=== PATIENT | male | born 2000 | race Caucasian/White ===

== ENCOUNTER 2022-03-08 21:32 | Inpatient (IN) | payer SELFPAY ==
[2022-03-08 21:47] VITALS: BP 166/123; PULSE 144; RESP 24; TEMP 36.3; O2SAT 99
--- NOTE | 2022-03-08 21:56 | ED_ITS ---
HPI - Abdominal Pain General Chief Complaint: Weakness Stated Complaint: Vomiting blood, weakness, chills Time Seen by Provider: 03/08/22 21:49 History of Present Illness HPI narrative: Patient is a 22-year-old gentleman who states he has no past medical history who presents with acute abdominal pain, coffee-ground emesis and fatigue over the last 24 hours. He has had some diarrhea as well. He states his mouth is extremely dry. He has had no fevers no chills no night sweats. He has had no skin breakdown no cough no shortness of breath. Related Data Home Medications Medication Instructions Recorded Confirmed aspirin 325 mg capsule 325 mg PO Q4-6H PRN 03/08/22 03/08/22 phosphorated carbohydrate oral 30 ml PO Q15M 03/08/22 03/08/22 solution (Emetrol oral solution) Allergies Allergy/AdvReac Type Severity Reaction Status Date / Time No Known Drug Allergies Allergy Verified 03/08/22 21:52 Review of Systems Status of ROS Reports: 10 or more systems reviewed and unremarkable except as noted in History and below [facility] Medical History (Updated 03/08/22 @ 22:56 by Kenan Ny MD) Anxiety Depression Exam Narrative: Exam Narrative: EXAM GENERAL: Patient appears distressed and dehydrated with dry mucous membranes EYES: No scleral icterus.. LYMPH: No supraclavicular or cervical lymphadenopathy. SKIN: Visible skin seen during exam normal or with benign process only. EXT: No dependent lower extremity pedal edema. HEART: Tachycardic no obvious rubs clicks gallops or murmurs. LUNGS: Clear to auscultation bilaterally with no crackles or wheezes. ABD: Mildly distended hypoactive bowel sounds no rebound mass or guarding. PSYCH: Good eye contact, speech is not pressured. Const: Vital Signs, click to edit/add: Vital Signs - 24 hr 03/08/22 21:47 Temperature 97.3 F L Pulse Rate [Right Pulse Oximeter] 144 H Respiratory Rate 24 Blood Pressure [Le ft Upper Arm] 166/123 H Pulse Oximetry 99 Course Course Hospital Course: Patient was immediately started on IV hydration. Blood sugars greater than 550. Lactate was noted to be elevated. Anion gap metabolic acidosis was immediately identified. Patient this time was admitted for further evaluation and treatment of diabetic ketoacidosis. Vital Signs Vital signs: Initial Vital Signs Temperature 97.3 F L 03/08/22 21:47 Temperature Source Temporal Artery Scan 03/08/22 21:47 Pulse Rate 144 H 03/08/22 21:47 Pulse Rhythm 03/08/22 21:47 Respiratory Rate 24 03/08/22 21:47 Blood Pressure 166/123 H 03/08/22 21:47 Blood Pressure Mean 137 03/08/22 21:47 Blood Pressure Position Supine 03/08/22 21:47 Pulse Oximetry 99 03/08/22 21:47 Oxygen Delivery Method 03/08/22 21:47 Vital Signs Temperature 97.3 F L 03/08/22 21:47 Pulse Rate 144 H 03/08/22 21:47 Respiratory Rate 24 03/08/22 21:47 Blood Pressure 166/123 H 03/08/22 21:47 Pulse Oximetry 99 03/08/22 21:47 Temperature 97.3 F L 03/08/22 21:47 Pulse Rate 144 H 03/08/22 21:47 Respiratory Rate 24 03/08/22 21:47 Blood Pressure 166/123 H 03/08/22 21:47 Pulse Oximetry 99 03/08/22 21:47 MDM - Abdominal Pain Lab Data Labs: Lab Results 03/08/22 03/08/22 03/08/22 Range/Units 22:04 22:04 22:04 ABG pH 7.04 L* (7.35-7.45) ABG pCO2 20 L (35-45) mmHG ABG pO2 47.3 L* (80-105) mmHG ABG HCO3 6 L (21-28) mmol/L ABG Total CO2 5 L (21-30) mmol/l ABG O2 Saturation 73 L (92-100) % ABG Base Excess -23.3 L (-3.0-3.0) mmol/L Sodium 138 (135-149) mmol/L Potassium 5.2 H (3.6-5.1) mmol/L Chloride 102 (96-114) mmol/L Carbon Dioxide < 5 L* (20-32) mmol/L BUN 13 (5-24) mg/dL Creatinine 1.4 (0.5-1.5) mg/dL Glucose 549 H* (60-115) mg/dL Lactate 5.2 H* (0.5-1.9) mmol/L Calcium 10.4 (8.4-10.6) mg/dL Total Bilirubin 1.1 (0.1-1.5) mg/dL AST 64 H (12-35) U/L ALT 184 H (4-50) U/L Alkaline Phosphatase 226 H (40-150) U/L Total Protein 9.1 H (6.0-8.3) g/dL Albumin 5.5 H (3.3-5.0) g/dL Amylase Cancelled Discharge Plan Discharge Clinical Impression: DKA (diabetic ketoacidosis) Patient Disposition: Admitted As Inpatient Condition: Unchanged Procedures ABG Interpretation ABG Interpretation 1: ABG Results: 03/08/22 22:04 ABG pH 7.04 L* ABG pCO2 20 L ABG pO2 47.3 L* ABG HCO3 6 L ABG Total CO2 5 L ABG O2 Saturation 73 L ABG Base Excess -23.3 L Additional Comments: Significant metabolic acidosis
[2022-03-08 22:10] LABS: Slide Review Reflex No
[2022-03-08 22:12] LABS: Lactate* 5.2 mmol/L (0.5-1.9)
[2022-03-08] MEDS: 0.9 % SODIUM CHLORIDE 1000 ml 1,000 ML IV (22:20)
[2022-03-08] MEDS: ONDANSETRON 2 MG/ML inj 4 MG IVP ×2 (22:21→23:41)
[2022-03-08 22:26] LABS: Albumin* 5.5 g/dL (3.3-5.0); Chloride* 102 mmol/L (96-114); Potassium* 5.2 mmol/L (3.6-5.1); Sodium* 138 mmol/L (135-149)
[2022-03-08 22:28] LABS: Creatinine* 1.4 mg/dL (0.5-1.5); Estimated Glomerular Filt Rate 72.43
[2022-03-08 22:29] LABS: Alanine Aminotransferase* 184 U/L (4-50); Alkaline Phosphatase* 226 U/L (40-150); Aspartate Amino Transferase* 64 U/L (12-35); Bilirubin Total* 1.1 mg/dL (0.1-1.5); Blood Urea Nitrogen* 13 mg/dL (5-24); Total Protein* 9.1 g/dL (6.0-8.3)
[2022-03-08 22:30] VITALS: BP 144/102; PULSE 148; RESP 32; O2SAT 98
[2022-03-08 22:30] LABS: Calcium* 10.4 mg/dL (8.4-10.6)
[2022-03-08] MEDS: MORPHINE 2 MG/ML inj IVP ×2 (22:30→23:41)
[2022-03-08 22:35] LABS: ABG PCO2 20 mmHG (35-45); HCO3 ABG 6 mmol/L (21-28)
[2022-03-08 22:36] LABS: Base Excess ABG -23.3 mmol/L (-3.0-3.0); Oxygen Saturation ABG 73 % (92-100); TCO2 ABG 5 mmol/l (21-30)
[2022-03-08 22:37] LABS: PO2 ABG 47.3 mmHG (80-105); pH ABG 7.04 (7.35-7.45)
[2022-03-08 22:38] LABS: Glucose* 549 mg/dL (60-115)
--- NOTE | 2022-03-08 22:38 | ED.NURSE ---
Critical Labs received: F76=ptxb than 5 ABG PH= 7.04 ABG PO2= 47.3 Blood Glucose= 549 Handed to at 2528
--- NOTE | 2022-03-08 22:38 | PC.NURSE ---
Alerted Dr. Ny of the critical lactate 5.2
[2022-03-08 22:39] LABS: Carbon Dioxide* < 5 mmol/L (20-32)
[2022-03-08 22:41] LABS: Basophils Percent Auto 0.6 % (0.0-3.0); Eosinophils Percent Auto 0.1 % (0.0-7.0); Hematocrit 58.8 % (37.0-53.0); Hemoglobin* 19.9 gm/dL (13.5-17.5); Immature Granulocytes Abs Auto 0.76 K/uL (0.00-0.30); Lymphocytes Percent Auto 11.5 % (20-44); Mean Corpuscular HGB Conc 34 gm/dL (32-36); Mean Corpuscular Hemoglobin 32 pg (26-34); Mean Corpuscular Volume 95 fL (80-100); Monocytes Percent Auto 6.5 % (0.0-11.0); Neutrophils Percent Auto 75.7 % (42.0-72.0); Platelet Count* 279 K/uL (140-440); RDW Coefficient of Variation % 12.1 % (11.5-15.5); Red Blood Count 6.21 m/uL (4.30-5.90); White Blood Count* 13.53 K/uL (4.50-11.00)
[2022-03-08 23:00] VITALS: BP 135/122; PULSE 144; RESP 30; O2SAT 99
[2022-03-08] MEDS: 0.9 % SODIUM CHLORIDE 1000 ml 1,000 ML 6000 ML IV (23:26)
--- NOTE | 2022-03-08 23:27 | PM.IMHP1 ---
Hospitalist- H&P: HPI History of Present Illness Time Seen by Provider: 23:26 Date Seen: 03/09/22 Chief complaint: Vomiting blood, weakness, chills Narrative: Gee Raymond is a 22 year old male Presents to the hospital with onset of epigastric pain yesterday at noon. patient reports having developed coffee-ground emesis and feels very dehydrated today. He has extreme thirst. He has past history of alcohol abuse necrotizing pancreatitis. No previous history of diabetes. He reports he was drinking alcohol 2 days ago. 1.5 years ago he was hospitalized here is for to [facility] necrotizing pancreatitis and so was found to have a pulmonary embolism. previously treated with Eliquis. Review of Systems Narrative: Review of systems is negative except as noted above. PFSH PFS Medical History Alcohol use disorder Anxiety Chronic alcoholic pancreatitis Depression Necrotizing pancreatitis Pulmonary embolism Family History (Updated 03/08/22 @ 23:44 by Bebeto Ponce MD) Maternal Grandfather Diabetes Social History Smoking Status: Never smoker Do you use any of these nicotine containing products: None Second hand tobacco smoke exposure: No How often do you have a drink containing alcohol: monthly or less How many standard drinks containing alcohol do you have on a typical day: 1 or 2 How often do you have six or more drinks on one occasion: Never AUDIT-C Alcohol total score: 1 Non-prescribed substance use: denies use service: No Meds Home Medications and Allergies Home Medications Medication Instructions Recorded Confirmed Type aspirin 325 mg capsule 325 mg PO Q4-6H PRN 03/08/22 03/08/22 History phosphorated carbohydrate oral 30 ml PO Q15M 03/08/22 03/08/22 History solution (Emetrol oral solution) Allergies Allergy/AdvReac Type Severity Reaction Status Date / Time No Known Drug Allergies Allergy Verified 03/08/22 21:52 Exam Narrative: Exam Narrative: he is alert and oriented to his circumstances. He is able to give his own history. He is tachypneic. Eyes are normal. Oropharynx with dry mucous membranes. Neck is Supple without mass or adenopathy. Respirations are clear to auscultation. CV: S1, S2, regular tachycardia. no murmur or rub.. Abdomen: Soft with mild epigastric tenderness. no peritonitis. No mass. Good peripheral pulses. Extremities are well perfused. No edema. No rash Const: Vital Signs, click to edit/add: Vital Signs - 24 hr 03/08/22 21:47 Temperature 97.3 F L Pulse Rate [Right Pulse Oximeter] 144 H Respiratory Rate 24 Blood Pressure [Le ft Upper Arm] 166/123 H Pulse Oximetry 99 Documenting provider has reviewed patient's vital signs: yes Hospitalist - H&P: Result Labs Labs: Short CBC 03/08/22 Range/Units 22:04 WBC 13.53 H (4.50-11.00) K/uL Hgb 19.9 H (13.5-17.5) gm/dL Hct 58.8 H (37.0-53.0) % Plt Count 279 (140-440) K/uL BMP 03/08/22 22:04 Sodium 138 Potassium 5.2 H Chloride 102 Carbon Dioxide < 5 L* BUN 13 Creatinine 1.4 Glucose 549 H* Calcium 10.4 Liver Function 03/08/22 Range/Units 22:04 Total Bilirubin 1.1 (0.1-1.5) mg/dL AST 64 H (12-35) U/L ALT 184 H (4-50) U/L Alkaline Phosphatase 226 H (40-150) U/L Albumin 5.5 H (3.3-5.0) g/dL Assessment and Plan Assessment and plan (1) Alcohol use disorder: Status: Acute (2) Diabetic ketoacidosis associated with type 1 diabetes mellitus: Status: Acute Plan patient presenting with diabetic ketoacidosis with a history of necrotizing pancreatitis. Probably a type 1 diabetes mellitus. admit to CCU, IV fluids, insulin drip, close monitoring of electrolytes and fluid status, evaluate for GI bleeding, infection, pancreatitis, alcohol withdrawal.
[2022-03-09] VITALS (22 sets, daily range): BP systolic 117–143; BP diastolic 66–118; PULSE 94–135; RESP 16–26; TEMP 36.3–37.2; O2SAT 92–100; BMI 33.6
[2022-03-09 00:04] LABS: Amylase* 101 U/L (18-89); Troponin I* < 0.01 ng/mL (0.01-0.04)
[2022-03-09 00:12] LABS: SARS PCR* Negative SARS-CoV-2 (Negative)
--- NOTE | 2022-03-09 00:27 | ED.NURSE ---
Insulin gtt started per order, 100units/100ml, started at 6units/hr per verbal order from Dr. Ponce. Blood sugar 374. Verified dose/med/concentration with PREM Wells.
--- NOTE | 2022-03-09 00:31 | ED.NURSE ---
Insulin dose and rate verified with PREM Uriarte. System not prompting to co-sign.
[2022-03-09 01:05] LABS: Lactate* 3.2 mmol/L (0.5-1.9); pH VBG 7.019 (7.32-7.43)
[2022-03-09 01:06] LABS: HCO3 VBG 5 mmol/L (21-28); PCO2 VBG 18 mmHG (40-50); PO2 VBG 52.9 mmHG (25-47); Sodium* 143 mmol/L (135-149)
[2022-03-09 01:07] LABS: Blood Urea Nitrogen* 13 mg/dL (5-24); Calcium* 8.9 mg/dL (8.4-10.6); Carbon Dioxide* < 5 mmol/L (20-32); Chloride* 115 mmol/L (96-114); Estimated Glomerular Filt Rate 108.46; Glucose* 337 mg/dL (60-115); Lipase* 554 U/L (23-300); Magnesium* 2.6 mg/dL (1.5-2.6); Potassium* 5.1 mmol/L (3.6-5.1)
[2022-03-09 01:07] LABS: Appearance Urine Clear (Clear); Bilirubin Urine 1+ (Negative); Blood Urine 2+ (Negative); Color Urine Yellow (Yellow); Glucose Urine 2+ (Negative); Ketones Urine 4+ (Negative); Leukocyte Esterase Urine Negative (Negative); Nitrite Urine Negative (Negative); Protein Urine 2+ (Negative); Specific Gravity Urine >= 1.030 (1.000-1.030); Urobilinogen Urine 0.2 (0.2-1.0); pH Urine 5.5 (5.0-8.5)
[2022-03-09 01:09] LABS: D Dimer Quantitative* 0.84 ug/ml (0.00-0.50)
--- NOTE | 2022-03-09 01:10 | XR_ITS ---
Final Report Patient: APGE ANGUIANO Facility:?[facility] Patient ID:?[id number] Site Patient ID:?[id number]. Site :?2000 Study:?XRay Chest 2v-03/09/2022 1:43:52 AM Ordering Physician:Melvi Taet Final Report: INDICATION: Weakness TECHNIQUE: Chest radiograph 2 views COMPARISON: None FINDINGS: Mediastinum: The mediastinum is normal in appearance. The heart silhouette is normal in size and morphology. Lung: Both lungs are unremarkable in appearance with small lung volumes. No sign of pleural effusion seen. No pneumothorax is identified. Bone and Soft tissue: Unremarkable for age. IMPRESSION: 1. No acute cardiopulmonary disease is seen. Dictated by: Garrett Weiss MD @ 03/09/2022 01:46:45 (Electronic Signature)
--- NOTE | 2022-03-09 01:10 | CT_ITS ---
Final Report Patient: PAGE ANGUIANO Facility:?[facility] Patient ID:?[id number] Site Patient ID:?[id number]. Site :?2000 Study:?CT Abdomen/Pelvis-03/09/2022 1:42:05 AM Ordering Physician:Melvi Tate Final Report: INDICATION: Abdominal pain TECHNIQUE: CT Abdomen and pelvis without i.v. contrast. Coronal and sagittal reformats were obtained. COMPARISON: 12/22/2020 FINDINGS: Lower chest: Unremarkable. Liver: New severe fatty infiltration of liver is noted. Spleen: Unremarkable. Pancreas: Mild stranding of the retroperitoneal fat is seen adjacent to the pancreatic body. Gallbladder: The gallbladder lumen is hyperdense in appearance which may be due to sludge, small gallstones, or vicarious excretion of any recently administered contrast. Kidney: Unremarkable. No kidney or ureteral stones or obstruction seen. Adrenal: Unremarkable. Bowel: Unremarkable. The appendix is normal in appearance and size. Vascular: Unremarkable. Lymph: Unremarkable. Peritoneum: Unremarkable. No pneumoperitoneum is seen. No significant ascites is noted. Pelvis: Unremarkable. Soft tissue: Unremarkable. Bone: Unremarkable for age. IMPRESSIONS: 1. New severe fatty infiltration of liver is noted. 2. Mild stranding of the retroperitoneal fat is seen adjacent to the pancreatic body. Correlation with serum amylase and lipase levels are recommended to exclude acute pancreatitis. Dictated by Garrett Weiss MD @ 03/09/2022 1:54:39 AM Please note that all CT scans at this facility use dose modulation, iterative reconstruction, and/or weight-based dosing when appropriate to reduce radiation dose to as low as reasonably achievable. Dictated by: Garrett Weiss MD @ 03/09/2022 01:54:59 (Electronic Signature)
[2022-03-09 01:14] LABS: Hematocrit 53.5 % (37.0-53.0); Hemoglobin* 17.8 gm/dL (13.5-17.5); Mean Corpuscular HGB Conc 33 gm/dL (32-36); Mean Corpuscular Hemoglobin 32 pg (26-34); Mean Corpuscular Volume 96 fL (80-100); Platelet Count* 195 K/uL (140-440); Slide Review Reflex No; White Blood Count* 12.87 K/uL (4.50-11.00)
[2022-03-09 01:15] LABS: Lymphocytes Percent Auto 7.9 % (20-44); Neutrophils Percent Auto 78.8 % (42.0-72.0)
[2022-03-09 01:16] LABS: Basophils Percent Auto 0.4 % (0.0-3.0); Eosinophils Percent Auto 0.1 % (0.0-7.0); Immature Granulocytes Pct Auto 4.3 %; Monocytes Percent Auto 8.5 % (0.0-11.0)
--- NOTE | 2022-03-09 01:22 | ED.NURSE ---
[facility]. Patient does not meet criteria for their facility. Patient is not acute enough.
[2022-03-09 01:33] LABS: RBC Urine 0-2 (0-2); WBC Urine 0-2 (0-5)
--- NOTE | 2022-03-09 01:40 | ED.NURSE ---
Pt transported to med/surg via wheelchair, update given to PREM Lizama, at the bedside.
[2022-03-09] MEDS: MORPHINE 2 MG/ML inj IVP ×3 (01:53→17:25)
[2022-03-09] MEDS: ENOXAPARIN 30 MG/0.3ML INJ SUBCUT ×2 (02:18→14:33)
[2022-03-09] MEDS: THIAMINE 100 MG TABLET PO ×2 (02:19→21:10)
[2022-03-09] MEDS: 0.9 % SODIUM CHLORIDE 1000 ml 1,000 ML 500 ML IV (02:19)
[2022-03-09 02:36] LABS: Lactate* 2.3 mmol/L (0.5-1.9)
[2022-03-09] MEDS: PANTOPRAZOLE SODIUM 40 MG INJ IVP (03:07)
[2022-03-09 03:10] LABS: Amphetamine Screen Urine Negative (Negative); Barbiturate Screen Urine Negative (Negative); Benzodiazepines Screen Urine Negative (Negative); Cannabinoid Screen Urine Negative (Negative); Cocaine Screen Urine Negative (Negative); Methadone Screen Urine Negative (Negative); Methamphetamines Screen Urine Negative (Negative); Opiate Screen Urine POSITIVE (Negative); Phencyclidine Screen Urine Negative (Negative); Tricyclic Antidepressant Urine Negative (Negative)
[2022-03-09 03:12] LABS: Oxycodone Screen Urine Negative (Negative)
[2022-03-09] MEDS: 5 % DEXTROSE IN LAC RINGER'S 1,000 ML 250 ML IV ×2 (03:18→07:20)
[2022-03-09 04:41] LABS: Glucose, Point-of-Care* 180 mg/dl (60-115)
[2022-03-09 05:20] LABS: Lactate* 1.6 mmol/L (0.5-1.9); Slide Review Reflex No
[2022-03-09 05:23] LABS: Basophils Percent Auto 0.4 % (0.0-3.0); Hematocrit 48.9 % (37.0-53.0); Hemoglobin* 16.5 gm/dL (13.5-17.5); Immature Granulocytes Abs Auto 0.26 K/uL (0.00-0.30); Lymphocytes Percent Auto 21.2 % (20-44); Mean Corpuscular HGB Conc 34 gm/dL (32-36); Mean Corpuscular Hemoglobin 32 pg (26-34); Mean Corpuscular Volume 96 fL (80-100); Monocytes Percent Auto 8.3 % (0.0-11.0); Neutrophils Percent Auto 67.9 % (42.0-72.0); Platelet Count* 162 K/uL (140-440); RDW Coefficient of Variation % 12.3 % (11.5-15.5); Red Blood Count 5.12 m/uL (4.30-5.90); White Blood Count* 11.87 K/uL (4.50-11.00)
[2022-03-09 05:37] LABS: Chloride* 115 mmol/L (96-114); Sodium* 139 mmol/L (135-149)
[2022-03-09 05:38] LABS: Potassium* 3.7 mmol/L (3.6-5.1)
[2022-03-09 05:40] LABS: Alanine Aminotransferase* 113 U/L (4-50); Alkaline Phosphatase* 148 U/L (40-150); Aspartate Amino Transferase* 40 U/L (12-35); Bilirubin Total* 0.9 mg/dL (0.1-1.5); Blood Urea Nitrogen* 10 mg/dL (5-24); Creatinine* 0.8 mg/dL (0.5-1.5); Est. Creatinine Clearance* 110.91; Estimated Glomerular Filt Rate 127.53; Glucose* 170 mg/dL (60-115); Total Protein* 6.6 g/dL (6.0-8.3)
[2022-03-09 05:41] LABS: Calcium* 8.2 mg/dL (8.4-10.6)
[2022-03-09 05:42] LABS: Carbon Dioxide* 5 mmol/L (20-32)
[2022-03-09 05:43] LABS: Glucose, Point-of-Care* 190 mg/dl (60-115)
--- NOTE | 2022-03-09 07:30 | PC.NURSE ---
Shift note: The pt has been pleasant and cooperative. 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 He was able to communicate with the health technical writer without any issues. The pt has been on Insulin drip per protocol. He has katt denying signs and sputum of hypo and hyper glycemia. Pain has been managed with IV morphine. CIWA has been less than 7. The pt denied any distress throughout the shift.
[2022-03-09 08:20] LABS: Glucose, Point-of-Care* 132 mg/dl (60-115)
[2022-03-09 08:29] LABS: Glucose, Point-of-Care* 132 mg/dl (60-115)
[2022-03-09 08:31] LABS: HCO3 VBG 11 mmol/L (21-28); PCO2 VBG 26 mmHG (40-50); pH VBG 7.254 (7.32-7.43)
[2022-03-09] MEDS: FOLIC ACID 1 MG TABLET PO (09:25)
[2022-03-09] MEDS: MULTIVITAMIN/MINERALS 1 TABLET 1 TAB PO (09:25)
[2022-03-09] MEDS: 5 % DEX/0.45 SOD CHL+KCL20 mEq 1,000 ML 250 ML IV (09:30)
[2022-03-09 09:40] LABS: Glucose, Point-of-Care* 151 mg/dl (60-115)
[2022-03-09 10:58] LABS: Glucose, Point-of-Care* 158 mg/dl (60-115)
--- NOTE | 2022-03-09 11:04 | PC.SOCIAL ---
Met with pt. to give chemical dependency resources. Pt. has been given these resources 2x before. Gave pt. inpatient and outpatient chemical dependency treatment facilities, AA, and information for a Rule 25 assessment since pt. has no insurance. Pt. had no questions.
[2022-03-09 11:08] LABS: Glucose, Point-of-Care* 133 mg/dl (60-115)
[2022-03-09 11:43] LABS: Glucose, Point-of-Care* 174 mg/dl (60-115)
[2022-03-09 12:43] LABS: Glucose, Point-of-Care* 192 mg/dl (60-115)
[2022-03-09 13:38] LABS: Chloride* 107 mmol/L (96-114); Sodium* 132 mmol/L (135-149)
[2022-03-09 13:40] LABS: Creatinine* 0.5 mg/dL (0.5-1.5); Est. Creatinine Clearance* 177.45; Estimated Glomerular Filt Rate 146.98
[2022-03-09 13:41] LABS: Blood Urea Nitrogen* 6 mg/dL (5-24); Carbon Dioxide* 14 mmol/L (20-32); Glucose* 174 mg/dL (60-115)
[2022-03-09] MEDS: 5 % DEX/0.45 SOD CHL+KCL20 mEq 1,000 ML 125 ML IV ×2 (14:21→21:25)
[2022-03-09 14:49] LABS: Glucose, Point-of-Care* 146 mg/dl (60-115)
--- NOTE | 2022-03-09 14:55 | PM.IMPN1 ---
Progress Note: A&P Assessment and plan (1) DKA (diabetic ketoacidosis): Status: Acute Assessment and Plan: I suspect this is related to pancreatic insufficiency related to chronic pancreatitis due to chronic alcoholism. His acidosis is resolving. His blood sugars are controlled. I will DC the insulin drip. I will cover him with sliding scale insulin and insulin glargine with frequent bedside point of care glucose measurements. I will add an A1c to his labs to see where his blood sugars been over the last few weeks. (2) Alcohol use disorder: Status: Acute Assessment and Plan: CIWA scales ordered and there seems to be no obvious signs of acute intoxication or withdrawal noted. (3) Pancreatitis: Status: Acute Assessment and Plan: Lipase was elevated at admission. He has a history of chronic pancreatitis. (4) Fatty liver due to alcoholism: Status: Acute Plan CT is describing this as new and severe. Likely again related to alcohol use disorder. Subjective Interval history: Daily Progress Note - Hospital Medicine Day #: 2 CC: Fatigue, nausea OVERNIGHT UPDATES FROM STAFF & MED, LAB, IMAGING UPDATES Afebrile Blood pressure 128/86, 139/90 Pulse in the low 100 Respiratory rate 16 Pulse ox 92% Weight 83 kilos Leukocytosis is down trending Blood gas this morning at 8:30 a.m. showed a nice improvement in his metabolic acidosis. PH was 7.3 Bicarb was 5 at 0 5 this morning and is up to 14 this afternoon Potassium is low normal this morning and had dropped to 3.0 this afternoon. Blood sugars under 200 AST and ALT mildly elevated at 40, 113 respectively. Normal bili. Lipase at midnight was 554 CT abdomen pelvis from admission is reviewed IMPRESSIONS: 1. New severe fatty infiltration of liver is noted. 2. Mild stranding of the retroperitoneal fat is seen adjacent to the pancreatic body. Correlation with serum amylase and lipase levels are recommended to exclude acute pancreatitis. Review of Systems: See subjective Cardiac: No new chest pain/pressure/palpitations. Respiratory: no new dyspnea. GI: No abdominal bloating Objective: Alert. Interactive. But mildly groggy. Vitals: see above Lungs: Clear. Cardiac: S1S2. Abdomen: Mildly obese Disposition/Potential discharge - Likely to return to previous living situation. Total time is 35 minutes with greater than 50% spent in counseling and coordination of care. Exam Const: Vital Signs, click to edit/add: Vital Signs - 24 hr 03/08/22 21:47 03/08/22 22:30 03/08/22 23:00 Temperature 97.3 F L Pulse Rate [Left P ulse Oximeter] Pulse Rate [Right Brachial] Pulse Rate [Right Pulse Oximeter] 144 H 148 H 144 H Respiratory Rate 24 32 H 30 H Blood Pressure [Le ft Arm] Blood Pressure [Le ft Upper Arm] 166/123 H 144/102 H 135/122 H Pulse Oximetry 99 98 99 03/09/22 00:40 03/09/22 01:00 03/09/22 02:00 Temperature 97.3 F L Pulse Rate [Left P ulse Oximeter] 135 H Pulse Rate [Right Brachial] 135 H Pulse Rate [Right Pulse Oximeter] 132 H 131 H Respiratory Rate 26 H 24 24 Blood Pressure [Le ft Arm] 137/84 Blood Pressure [Le ft Upper Arm] 140/118 H 143/93 H Pulse Oximetry 99 99 98 03/09/22 02:03 03/09/22 02:54 03/09/22 03:33 Temperature 97.3 F L 97.3 F L 97.4 F L Pulse Rate [Left P ulse Oximeter] 135 H 135 H 115 H Pulse Rate [Right Brachial] 135 H 115 H Pulse Rate [Right Pulse Oximeter] Respiratory Rate 24 24 24 Blood Pressure [Le ft Arm] 137/84 137/84 133/79 Blood Pressure [Le ft Upper Arm] Pulse Oximetry 98 98 100 03/09/22 04:30 03/09/22 05:20 03/09/22 06:52 Temperature 97.4 F L 97.6 F 97.7 F Pulse Rate [Left P ulse Oximeter] Pulse Rate [Right Brachial] 115 H 110 H 116 H Pulse Rate [Right Pulse Oximeter] Respiratory Rate 24 20 20 Blood Pressure [Le ft Arm] 133/79 143/93 H 129/101 H Blood Pressure [Le ft Upper Arm] Pulse Oximetry 100 100 100 03/09/22 07:30 03/09/22 08:09 03/09/22 08:34 Temperature 98.9 F 98.9 F Pulse Rate [Left P ulse Oximeter] 94 94 104 H Pulse Rate [Right Brachial] 94 94 104 H Pulse Rate [Right Pulse Oximeter] Respiratory Rate 18 18 18 Blood Pressure [Le ft Arm] 134/79 134/79 117/70 Blood Pressure [Le ft Upper Arm] Pulse Oximetry 100 100 97 03/09/22 09:36 03/09/22 10:30 03/09/22 11:40 Temperature 99.0 F 98.7 F Pulse Rate [Left P ulse Oximeter] 105 H 103 H 106 H Pulse Rate [Right Brachial] 105 H 103 H 106 H Pulse Rate [Right Pulse Oximeter] Respiratory Rate 16 16 16 Blood Pressure [Le ft Arm] 122/76 139/90 H 128/86 Blood Pressure [Le ft Upper Arm] Pulse Oximetry 98 95 92 03/09/22 12:17 Temperature 98.7 F Pulse Rate [Left P ulse Oximeter] 106 H Pulse Rate [Right Brachial] 106 H Pulse Rate [Right Pulse Oximeter] Respiratory Rate 16 Blood Pressure [Le ft Arm] 128/86 Blood Pressure [Le ft Upper Arm] Pulse Oximetry 92 Labs Labs: Laboratory Results - last 24 hr 03/08/22 03/08/22 03/08/22 00:20 00:20 12:20 WBC Cancelled Corrected WBC Cancelled RBC Cancelled Hgb Cancelled Hct Cancelled MCV Cancelled MCH Cancelled MCHC Cancelled RDW Coeff of Scott Cancelled Plt Count Cancelled Neut % (Auto) Cancelled Lymph % (Auto) Cancelled [place] % (Auto) Cancelled Eos % (Auto) Cancelled Baso % (Auto) Cancelled Neut # (Auto) Cancelled Lymph # (Auto) Cancelled [place] # (Auto) Cancelled Eos # (Auto) Cancelled Baso # (Auto) Cancelled Abs Immat Gran (auto) Cancelled Imm/Tot Granulo (auto) Cancelled D-Dimer Quant (PE/DVT) ABG pH ABG pCO2 ABG pO2 ABG HCO3 ABG Total CO2 ABG O2 Saturation ABG Base Excess VBG pH Cancelled VBG pCO2 Cancelled VBG pO2 Cancelled VBG HCO3 Cancelled Sodium Cancelled Potassium Cancelled Chloride Cancelled Carbon Dioxide Cancelled BUN Cancelled Creatinine Cancelled Estimated Creat Clear Cancelled Glucose Cancelled Lactate Cancelled Calcium Cancelled Magnesium Cancelled Total Bilirubin AST ALT Alkaline Phosphatase Troponin I Total Protein Albumin Amylase Lipase Cancelled Urine Color Urine Appearance Urine pH Ur Specific [place] Urine Protein Urine Glucose (UA) Urine Ketones Urine Blood Urine Nitrite Urine Bilirubin Urine Urobilinogen Ur Leukocyte Esterase Urine RBC Urine WBC Ur Squamous Epith Cells Urine Bacteria Urine Opiates Screen Ur Oxycodone Screen Urine Methadone Screen Ur Propoxyphene Screen Ur Barbiturates Screen U Tricyclic Antidepress Ur Phencyclidine Scrn Ur Amphetamines Screen U Methamphetamines Scrn U Benzodiazepines Scrn Urine Cocaine Screen U Marijuana (THC) Screen Ur Drug Screen Comment SARS-CoV-2 (PCR) POC Glucose 03/08/22 03/08/22 03/08/22 12:20 22:04 22:04 WBC 13.53 H Corrected WBC RBC 6.21 H Hgb 19.9 H Hct 58.8 H MCV 95 MCH 32 MCHC 34 RDW Coeff of Scott 12.1 Plt Count 279 Neut % (Auto) 75.7 H Lymph % (Auto) 11.5 L [place] % (Auto) 6.5 Eos % (Auto) 0.1 Baso % (Auto) 0.6 Neut # (Auto) 10.20 H Lymph # (Auto) 1.60 [place] # (Auto) 0.90 Eos # (Auto) 0.00 Baso # (Auto) 0.10 Abs Immat Gran (auto) 0.76 H Imm/Tot Granulo (auto) D-Dimer Quant (PE/DVT) Cancelled ABG pH ABG pCO2 ABG pO2 ABG HCO3 ABG Total CO2 ABG O2 Saturation ABG Base Excess VBG pH VBG pCO2 VBG pO2 VBG HCO3 Sodium 138 Potassium 5.2 H Chloride 102 Carbon Dioxide < 5 L* BUN 13 Creatinine 1.4 Estimated Creat Clear Glucose 549 H* Lactate Calcium 10.4 Magnesium Total Bilirubin 1.1 AST 64 H ALT 184 H Alkaline Phosphatase 226 H Troponin I < 0.01 L Total Protein 9.1 H Albumin 5.5 H Amylase 101 H Lipase Urine Color Urine Appearance Urine pH Ur Specific [place] Urine Protein Urine Glucose (UA) Urine Ketones Urine Blood Urine Nitrite Urine Bilirubin Urine Urobilinogen Ur Leukocyte Esterase Urine RBC Urine WBC Ur Squamous Epith Cells Urine Bacteria Urine Opiates Screen Ur Oxycodone Screen Urine Methadone Screen Ur Propoxyphene Screen Ur Barbiturates Screen U Tricyclic Antidepress Ur Phencyclidine Scrn Ur Amphetamines Screen U Methamphetamines Scrn U Benzodiazepines Scrn Urine Cocaine Screen U Marijuana (THC) Screen Ur Drug Screen Comment SARS-CoV-2 (PCR) POC Glucose 03/08/22 03/08/22 03/08/22 22:04 22:04 22:53 WBC Corrected WBC RBC Hgb Hct MCV MCH MCHC RDW Coeff of Scott Plt Count Neut % (Auto) Lymph % (Auto) [place] % (Auto) Eos % (Auto) Baso % (Auto) Neut # (Auto) Lymph # (Auto) [place] # (Auto) Eos # (Auto) Baso # (Auto) Abs Immat Gran (auto) Imm/Tot Granulo (auto) D-Dimer Quant (PE/DVT) ABG pH 7.04 L* ABG pCO2 20 L ABG pO2 47.3 L* ABG HCO3 6 L ABG Total CO2 5 L ABG O2 Saturation 73 L ABG Base Excess -23.3 L VBG pH VBG pCO2 VBG pO2 VBG HCO3 Sodium Potassium Chloride Carbon Dioxide BUN Creatinine Estimated Creat Clear Glucose Lactate 5.2 H* Calcium Magnesium Total Bilirubin AST ALT Alkaline Phosphatase Troponin I Total Protein Albumin Amylase Cancelled Lipase Urine Color Urine Appearance Urine pH Ur Specific [place] Urine Protein Urine Glucose (UA) Urine Ketones Urine Blood Urine Nitrite Urine Bilirubin Urine Urobilinogen Ur Leukocyte Esterase Urine RBC Urine WBC Ur Squamous Epith Cells Urine Bacteria Urine Opiates Screen Ur Oxycodone Screen Urine Methadone Screen Ur Propoxyphene Screen Ur Barbiturates Screen U Tricyclic Antidepress Ur Phencyclidine Scrn Ur Amphetamines Screen U Methamphetamines Scrn U Benzodiazepines Scrn Urine Cocaine Screen U Marijuana (THC) Screen Ur Drug Screen Comment SARS-CoV-2 (PCR) Negative SARS-CoV-2 POC Glucose 03/09/22 03/09/22 03/09/22 00:20 00:20 00:20 WBC Corrected WBC RBC Hgb Hct MCV MCH MCHC RDW Coeff of Scott Plt Count Neut % (Auto) Lymph % (Auto) [place] % (Auto) Eos % (Auto) Baso % (Auto) Neut # (Auto) Lymph # (Auto) [place] # (Auto) Eos # (Auto) Baso # (Auto) Abs Immat Gran (auto) Imm/Tot Granulo (auto) D-Dimer Quant (PE/DVT) 0.84 H ABG pH ABG pCO2 ABG pO2 ABG HCO3 ABG Total CO2 ABG O2 Saturation ABG Base Excess VBG pH 7.019 L* VBG pCO2 18 L* VBG pO2 52.9 H VBG HCO3 5 L Sodium 143 Potassium 5.1 Chloride 115 H Carbon Dioxide < 5 L* BUN 13 Creatinine 1.0 Estimated Creat Clear Glucose 337 H Lactate 3.2 H Calcium 8.9 Magnesium 2.6 Total Bilirubin AST ALT Alkaline Phosphatase Troponin I Total Protein Albumin Amylase Lipase 554 H Urine Color Urine Appearance Urine pH Ur Specific [place] Urine Protein Urine Glucose (UA) Urine Ketones Urine Blood Urine Nitrite Urine Bilirubin Urine Urobilinogen Ur Leukocyte Esterase Urine RBC Urine WBC Ur Squamous Epith Cells Urine Bacteria Urine Opiates Screen Ur Oxycodone Screen Urine Methadone Screen Ur Propoxyphene Screen Ur Barbiturates Screen U Tricyclic Antidepress Ur Phencyclidine Scrn Ur Amphetamines Screen U Methamphetamines Scrn U Benzodiazepines Scrn Urine Cocaine Screen U Marijuana (THC) Screen Ur Drug Screen Comment SARS-CoV-2 (PCR) POC Glucose 03/09/22 03/09/22 03/09/22 00:20 00:42 00:42 WBC 12.87 H Corrected WBC RBC 5.60 Hgb 17.8 H Hct 53.5 H MCV 96 MCH 32 MCHC 33 RDW Coeff of Scott Plt Count 195 Neut % (Auto) 78.8 H Lymph % (Auto) 7.9 L [place] % (Auto) 8.5 Eos % (Auto) 0.1 Baso % (Auto) 0.4 Neut # (Auto) 10.10 H Lymph # (Auto) 1.00 [place] # (Auto) 1.10 H Eos # (Auto) 0.00 Baso # (Auto) 0.10 Abs Immat Gran (auto) 0.60 H Imm/Tot Granulo (auto) 4.3 D-Dimer Quant (PE/DVT) ABG pH ABG pCO2 ABG pO2 ABG HCO3 ABG Total CO2 ABG O2 Saturation ABG Base Excess VBG pH VBG pCO2 VBG pO2 VBG HCO3 Sodium Potassium Chloride Carbon Dioxide BUN Creatinine Estimated Creat Clear Glucose Lactate Calcium Magnesium Total Bilirubin AST ALT Alkaline Phosphatase Troponin I Total Protein Albumin Amylase Lipase Urine Color Yellow Urine Appearance Clear Urine pH 5.5 Ur Specific [place] >= 1.030 Urine Protein 2+ A Urine Glucose (UA) 2+ A Urine Ketones 4+ A Urine Blood 2+ A Urine Nitrite Negative Urine Bilirubin 1+ A Urine Urobilinogen 0.2 Ur Leukocyte Esterase Negative Urine RBC 0-2 Urine WBC 0-2 Ur Squamous Epith Cells None Urine Bacteria None Urine Opiates Screen POSITIVE A Ur Oxycodone Screen Negative Urine Methadone Screen Negative Ur Propoxyphene Screen Negative Ur Barbiturates Screen Negative U Tricyclic Antidepress Negative Ur Phencyclidine Scrn Negative Ur Amphetamines Screen Negative U Methamphetamines Scrn Negative U Benzodiazepines Scrn Negative Urine Cocaine Screen Negative U Marijuana (THC) Screen Negative Ur Drug Screen Comment See Note SARS-CoV-2 (PCR) POC Glucose 03/09/22 03/09/22 03/09/22 02:27 04:30 05:18 WBC 11.87 H Corrected WBC RBC 5.12 Hgb 16.5 Hct 48.9 MCV 96 MCH 32 MCHC 34 RDW Coeff of Scott 12.3 Plt Count 162 Neut % (Auto) 67.9 Lymph % (Auto) 21.2 [place] % (Auto) 8.3 Eos % (Auto) 0.0 Baso % (Auto) 0.4 Neut # (Auto) 8.10 H Lymph # (Auto) 2.50 [place] # (Auto) 1.00 H Eos # (Auto) 0.00 Baso # (Auto) 0.00 Abs Immat Gran (auto) 0.26 Imm/Tot Granulo (auto) D-Dimer Quant (PE/DVT) ABG pH ABG pCO2 ABG pO2 ABG HCO3 ABG Total CO2 ABG O2 Saturation ABG Base Excess VBG pH VBG pCO2 VBG pO2 VBG HCO3 Sodium Potassium Chloride Carbon Dioxide BUN Creatinine Estimated Creat Clear Glucose Lactate 2.3 H Calcium Magnesium Total Bilirubin AST ALT Alkaline Phosphatase Troponin I Total Protein Albumin Amylase Lipase Urine Color Urine Appearance Urine pH Ur Specific [place] Urine Protein Urine Glucose (UA) Urine Ketones Urine Blood Urine Nitrite Urine Bilirubin Urine Urobilinogen Ur Leukocyte Esterase Urine RBC Urine WBC Ur Squamous Epith Cells Urine Bacteria Urine Opiates Screen Ur Oxycodone Screen Urine Methadone Screen Ur Propoxyphene Screen Ur Barbiturates Screen U Tricyclic Antidepress Ur Phencyclidine Scrn Ur Amphetamines Screen U Methamphetamines Scrn U Benzodiazepines Scrn Urine Cocaine Screen U Marijuana (THC) Screen Ur Drug Screen Comment SARS-CoV-2 (PCR) POC Glucose 180 H 03/09/22 03/09/22 03/09/22 05:18 05:18 05:30 WBC Corrected WBC RBC Hgb Hct MCV MCH MCHC RDW Coeff of Scott Plt Count Neut % (Auto) Lymph % (Auto) [place] % (Auto) Eos % (Auto) Baso % (Auto) Neut # (Auto) Lymph # (Auto) [place] # (Auto) Eos # (Auto) Baso # (Auto) Abs Immat Gran (auto) Imm/Tot Granulo (auto) D-Dimer Quant (PE/DVT) ABG pH ABG pCO2 ABG pO2 ABG HCO3 ABG Total CO2 ABG O2 Saturation ABG Base Excess VBG pH VBG pCO2 VBG pO2 VBG HCO3 Sodium 139 Potassium 3.7 Chloride 115 H Carbon Dioxide 5 L* BUN 10 Creatinine 0.8 Estimated Creat Clear 110.91 Glucose 170 H Lactate 1.6 Calcium 8.2 L Magnesium Total Bilirubin 0.9 AST 40 H ALT 113 H Alkaline Phosphatase 148 Troponin I Total Protein 6.6 Albumin 4.0 Amylase Lipase Urine Color Urine Appearance Urine pH Ur Specific [place] Urine Protein Urine Glucose (UA) Urine Ketones Urine Blood Urine Nitrite Urine Bilirubin Urine Urobilinogen Ur Leukocyte Esterase Urine RBC Urine WBC Ur Squamous Epith Cells Urine Bacteria Urine Opiates Screen Ur Oxycodone Screen Urine Methadone Screen Ur Propoxyphene Screen Ur Barbiturates Screen U Tricyclic Antidepress Ur Phencyclidine Scrn Ur Amphetamines Screen U Methamphetamines Scrn U Benzodiazepines Scrn Urine Cocaine Screen U Marijuana (THC) Screen Ur Drug Screen Comment SARS-CoV-2 (PCR) POC Glucose 190 H 03/09/22 03/09/22 03/09/22 06:30 07:30 08:30 WBC Corrected WBC RBC Hgb Hct MCV MCH MCHC RDW Coeff of Scott Plt Count Neut % (Auto) Lymph % (Auto) [place] % (Auto) Eos % (Auto) Baso % (Auto) Neut # (Auto) Lymph # (Auto) [place] # (Auto) Eos # (Auto) Baso # (Auto) Abs Immat Gran (auto) Imm/Tot Granulo (auto) D-Dimer Quant (PE/DVT) ABG pH ABG pCO2 ABG pO2 ABG HCO3 ABG Total CO2 ABG O2 Saturation ABG Base Excess VBG pH VBG pCO2 VBG pO2 VBG HCO3 Sodium Potassium Chloride Carbon Dioxide BUN Creatinine Estimated Creat Clear Glucose Lactate Calcium Magnesium Total Bilirubin AST ALT Alkaline Phosphatase Troponin I Total Protein Albumin Amylase Lipase Urine Color Urine Appearance Urine pH Ur Specific [place] Urine Protein Urine Glucose (UA) Urine Ketones Urine Blood Urine Nitrite Urine Bilirubin Urine Urobilinogen Ur Leukocyte Esterase Urine RBC Urine WBC Ur Squamous Epith Cells Urine Bacteria Urine Opiates Screen Ur Oxycodone Screen Urine Methadone Screen Ur Propoxyphene Screen Ur Barbiturates Screen U Tricyclic Antidepress Ur Phencyclidine Scrn Ur Amphetamines Screen U Methamphetamines Scrn U Benzodiazepines Scrn Urine Cocaine Screen U Marijuana (THC) Screen Ur Drug Screen Comment SARS-CoV-2 (PCR) POC Glucose 133 H 132 H 132 H 03/09/22 03/09/22 03/09/22 08:30 09:30 10:30 WBC Corrected WBC RBC Hgb Hct MCV MCH MCHC RDW Coeff of Scott Plt Count Neut % (Auto) Lymph % (Auto) [place] % (Auto) Eos % (Auto) Baso % (Auto) Neut # (Auto) Lymph # (Auto) [place] # (Auto) Eos # (Auto) Baso # (Auto) Abs Immat Gran (auto) Imm/Tot Granulo (auto) D-Dimer Quant (PE/DVT) ABG pH ABG pCO2 ABG pO2 ABG HCO3 ABG Total CO2 ABG O2 Saturation ABG Base Excess VBG pH 7.254 L VBG pCO2 26 L VBG pO2 103.0 H VBG HCO3 11 L Sodium Potassium Chloride Carbon Dioxide BUN Creatinine Estimated Creat Clear Glucose Lactate Calcium Magnesium Total Bilirubin AST ALT Alkaline Phosphatase Troponin I Total Protein Albumin Amylase Lipase Urine Color Urine Appearance Urine pH Ur Specific [place] Urine Protein Urine Glucose (UA) Urine Ketones Urine Blood Urine Nitrite Urine Bilirubin Urine Urobilinogen Ur Leukocyte Esterase Urine RBC Urine WBC Ur Squamous Epith Cells Urine Bacteria Urine Opiates Screen Ur Oxycodone Screen Urine Methadone Screen Ur Propoxyphene Screen Ur Barbiturates Screen U Tricyclic Antidepress Ur Phencyclidine Scrn Ur Amphetamines Screen U Methamphetamines Scrn U Benzodiazepines Scrn Urine Cocaine Screen U Marijuana (THC) Screen Ur Drug Screen Comment SARS-CoV-2 (PCR) POC Glucose 151 H 158 H 03/09/22 03/09/22 03/09/22 11:30 12:39 13:14 WBC Corrected WBC RBC Hgb Hct MCV MCH MCHC RDW Coeff of Scott Plt Count Neut % (Auto) Lymph % (Auto) [place] % (Auto) Eos % (Auto) Baso % (Auto) Neut # (Auto) Lymph # (Auto) [place] # (Auto) Eos # (Auto) Baso # (Auto) Abs Immat Gran (auto) Imm/Tot Granulo (auto) D-Dimer Quant (PE/DVT) ABG pH ABG pCO2 ABG pO2 ABG HCO3 ABG Total CO2 ABG O2 Saturation ABG Base Excess VBG pH VBG pCO2 VBG pO2 VBG HCO3 Sodium 132 L Potassium 3.0 L Chloride 107 Carbon Dioxide 14 L BUN 6 Creatinine 0.5 Estimated Creat Clear 177.45 Glucose 174 H Lactate Calcium 8.0 L Magnesium Total Bilirubin AST ALT Alkaline Phosphatase Troponin I Total Protein Albumin Amylase Lipase Urine Color Urine Appearance Urine pH Ur Specific [place] Urine Protein Urine Glucose (UA) Urine Ketones Urine Blood Urine Nitrite Urine Bilirubin Urine Urobilinogen Ur Leukocyte Esterase Urine RBC Urine WBC Ur Squamous Epith Cells Urine Bacteria Urine Opiates Screen Ur Oxycodone Screen Urine Methadone Screen Ur Propoxyphene Screen Ur Barbiturates Screen U Tricyclic Antidepress Ur Phencyclidine Scrn Ur Amphetamines Screen U Methamphetamines Scrn U Benzodiazepines Scrn Urine Cocaine Screen U Marijuana (THC) Screen Ur Drug Screen Comment SARS-CoV-2 (PCR) POC Glucose 174 H 192 H 03/09/22 14:15 WBC Corrected WBC RBC Hgb Hct MCV MCH MCHC RDW Coeff of Scott Plt Count Neut % (Auto) Lymph % (Auto) [place] % (Auto) Eos % (Auto) Baso % (Auto) Neut # (Auto) Lymph # (Auto) [place] # (Auto) Eos # (Auto) Baso # (Auto) Abs Immat Gran (auto) Imm/Tot Granulo (auto) D-Dimer Quant (PE/DVT) ABG pH ABG pCO2 ABG pO2 ABG HCO3 ABG Total CO2 ABG O2 Saturation ABG Base Excess VBG pH VBG pCO2 VBG pO2 VBG HCO3 Sodium Potassium Chloride Carbon Dioxide BUN Creatinine Estimated Creat Clear Glucose Lactate Calcium Magnesium Total Bilirubin AST ALT Alkaline Phosphatase Troponin I Total Protein Albumin Amylase Lipase Urine Color Urine Appearance Urine pH Ur Specific [place] Urine Protein Urine Glucose (UA) Urine Ketones Urine Blood Urine Nitrite Urine Bilirubin Urine Urobilinogen Ur Leukocyte Esterase Urine RBC Urine WBC Ur Squamous Epith Cells Urine Bacteria Urine Opiates Screen Ur Oxycodone Screen Urine Methadone Screen Ur Propoxyphene Screen Ur Barbiturates Screen U Tricyclic Antidepress Ur Phencyclidine Scrn Ur Amphetamines Screen U Methamphetamines Scrn U Benzodiazepines Scrn Urine Cocaine Screen U Marijuana (THC) Screen Ur Drug Screen Comment SARS-CoV-2 (PCR) POC Glucose 146 H
[2022-03-09] MEDS: POTASSIUM CHLORIDE 10 MEQ/100 ML PIGGYBACK 100 MEQ IVPB ×4 (15:09→18:37)
--- NOTE | 2022-03-09 16:03 | PC.NURSE ---
end of Shift: pt has been pleasant and cooperative. he speaks [place]. He is communicate without any issues. Insulin drip per protocol with Q1 hour glucose checks drip was stopped 1440. back pain 3/10 an encouraged change of position and getting out of bed. told pt to call if he needs and wants something for pain. CIWA 0 and 0 q 4 hours. teds and scds are on. IV is patent and SL is patent. he is up with SBA. encouraged pt to drinking some clears. he is drinking and voiding. He is a unit pt. pt is complained of being very tired and he has slept alot today. VS changed to Q4H from every 1 hour.
[2022-03-09 18:24] LABS: Basophils Absolute Auto 0.02 K/uL (0.00-0.30); Basophils Percent Auto 0.3 % (0.0-3.0); Eosinophils Absolute Auto 0.05 K/uL (0.00-0.50); Eosinophils Percent Auto 0.8 % (0.0-7.0); Hemoglobin* 15.4 gm/dL (13.5-17.5); Immature Granulocytes Abs Auto 0.06 K/uL (0.00-0.30); Lymphocytes Absolute Auto 1.58 K/uL (0.90-2.90); Lymphocytes Percent Auto 24.3 % (20-44); Mean Corpuscular HGB Conc 35 gm/dL (32-36); Mean Corpuscular Hemoglobin 32 pg (26-34); Mean Corpuscular Volume 90 fL (80-100); Monocytes Percent Auto 9.4 % (0.0-11.0); Neutrophils Absolute Auto 4.17 K/uL (1.7-7.0); Neutrophils Percent Auto 64.3 % (42.0-72.0); Platelet Count* 140 K/uL (140-440); Red Blood Count 4.89 m/uL (4.30-5.90); White Blood Count* 6.49 K/uL (4.50-11.00)
[2022-03-09 18:45] LABS: Slide Review Reflex No
[2022-03-09] MEDS: OMEPRAZOLE 20 MG CAPSULE DR PO (21:10)
[2022-03-09] MEDS: KETOROLAC 30 MG/ML inj IVP (21:10)
[2022-03-09 21:49] LABS: HCO3 VBG 15 mmol/L (21-28); PCO2 VBG 27 mmHG (40-50); PO2 VBG 63.2 mmHG (25-47); pH VBG 7.361 (7.32-7.43)
[2022-03-09 22:09] LABS: Chloride* 105 mmol/L (96-114); Potassium* 3.5 mmol/L (3.6-5.1); Sodium* 130 mmol/L (135-149)
[2022-03-09 22:12] LABS: Creatinine* 0.5 mg/dL (0.5-1.5); Est. Creatinine Clearance* 177.45; Estimated Glomerular Filt Rate 146.98
[2022-03-09 22:13] LABS: Blood Urea Nitrogen* 5 mg/dL (5-24); Calcium* 8.3 mg/dL (8.4-10.6); Carbon Dioxide* 12 mmol/L (20-32); Glucose* 245 mg/dL (60-115)
[2022-03-09 22:15] LABS: Hemoglobin A1C* 9.05 % (0-5.6)
--- NOTE | 2022-03-09 23:03 | PC.NURSE ---
End of Shift: Patient pleasant and cooperative. Afebrile. Rating pain in back and headache 6-8/10. PRN Morphine and Toradol given x1, pain decreased to 2-3/10. Patient tolerating clear liquid diet with no nausea or emesis. Up independently in room. CIWA 5 and 3.
[2022-03-10] MEDS: ENOXAPARIN 30 MG/0.3ML INJ SUBCUT ×2 (01:15→12:50)
[2022-03-10] MEDS: 5 % DEX/0.9 SOD CHL+KCL 20 mEq 1,000 ML 100 ML IV ×2 (01:19→10:58)
[2022-03-10 04:00] VITALS: BP 118/80; PULSE 84; RESP 18; TEMP 37.2; O2SAT 98
--- NOTE | 2022-03-10 06:51 | PC.NURSE ---
Shift note: Pt rested in bed throughout the night, no c/o pain, CIWA 0 during this shift. No other complains verbalized or concerns noted by RN
[2022-03-10 07:17] LABS: Hematocrit 42.1 % (37.0-53.0); Mean Corpuscular HGB Conc 36 gm/dL (32-36); Mean Corpuscular Hemoglobin 32 pg (26-34); Mean Corpuscular Volume 90 fL (80-100); Platelet Count* 129 K/uL (140-440); White Blood Count* 3.85 K/uL (4.50-11.00)
[2022-03-10 07:19] LABS: HCO3 VBG 19 mmol/L (21-28); PCO2 VBG 33 mmHG (40-50); pH VBG 7.365 (7.32-7.43)
[2022-03-10 07:29] LABS: Hemoglobin A1C* 9.51 % (0-5.6)
[2022-03-10 07:30] LABS: Slide Review Reflex No
[2022-03-10 07:38] LABS: Glucose, Point-of-Care* 244 mg/dl (60-115)
[2022-03-10 08:02] LABS: Albumin* 3.2 g/dL (3.3-5.0); Chloride* 106 mmol/L (96-114)
[2022-03-10 08:03] LABS: Potassium* 3.1 mmol/L (3.6-5.1); Sodium* 132 mmol/L (135-149)
[2022-03-10 08:05] LABS: Alanine Aminotransferase* 91 U/L (4-50); Alkaline Phosphatase* 122 U/L (40-150); Aspartate Amino Transferase* 70 U/L (12-35); Bilirubin Total* 1.2 mg/dL (0.1-1.5); Blood Urea Nitrogen* 4 mg/dL (5-24); Carbon Dioxide* 18 mmol/L (20-32); Cholesterol* 211 mg/dL (90-199); Creatinine* 0.5 mg/dL (0.5-1.5); Est. Creatinine Clearance* 177.45; Estimated Glomerular Filt Rate 146.98; Glucose* 245 mg/dL (60-115); Lipase* 168 U/L (23-300); Total Protein* 5.5 g/dL (6.0-8.3)
[2022-03-10 08:06] LABS: Calcium* 8.4 mg/dL (8.4-10.6); HDL Cholesterol* 28 mg/dL (>=40); LDL Cholesterol Calculated 108 mg/dL (<100); Magnesium* 1.7 mg/dL (1.5-2.6); Triglycerides* 373 mg/dL (40-149)
[2022-03-10 08:14] VITALS: BP 101/64; PULSE 100; RESP 16; TEMP 36.7; O2SAT 98
[2022-03-10] MEDS: POTASSIUM PHOS/SODIUM PHOS 250 MG TABLET PO ×2 (08:40→21:13)
[2022-03-10] MEDS: OMEPRAZOLE 20 MG CAPSULE DR PO ×2 (08:41→21:13)
[2022-03-10] MEDS: FOLIC ACID 1 MG TABLET PO (08:41)
[2022-03-10] MEDS: MULTIVITAMIN/MINERALS 1 TABLET 1 TAB PO (08:41)
[2022-03-10 09:44] LABS: Blood Urea Nitrogen* 4 mg/dL (5-24); Calcium* 8.4 mg/dL (8.4-10.6); Carbon Dioxide* 18 mmol/L (20-32); Chloride* 106 mmol/L (96-114); Creatinine* 0.5 mg/dL (0.5-1.5); Est. Creatinine Clearance* 177.45; Estimated Glomerular Filt Rate 146.98; Glucose* 245 mg/dL (60-115); Potassium* 3.1 mmol/L (3.6-5.1); Sodium* 132 mmol/L (135-149)
[2022-03-10 09:45] LABS: Alanine Aminotransferase* 91 U/L (4-50); Albumin* 3.2 g/dL (3.3-5.0); Alkaline Phosphatase* 122 U/L (40-150); Aspartate Amino Transferase* 70 U/L (12-35); Bilirubin Total* 1.2 mg/dL (0.1-1.5); Total Protein* 5.5 g/dL (6.0-8.3)
[2022-03-10] MEDS: POTASSIUM CHLORIDE 10 MEQ/100 ML PIGGYBACK 100 MEQ IVPB ×2 (11:03→12:20)
[2022-03-10 11:07] VITALS: BP 114/75; PULSE 95; RESP 16; TEMP 36.7; O2SAT 97
--- NOTE | 2022-03-10 12:36 | PC.NURSE ---
End of Shift:? pt is pleasant. he speaks Ethiopian.? He can communicate without any issues.? he needs to move more and we are encouraging ambulation and getting up more. no back pain 0/10 an encouraged change of position and getting out of bed. told pt to call if he needs and wants something for pain.? ? CIWA 0 and 0 q 4 hours.? teds and scds are on and off. ? IV is patent and SL is patent. he is getting IV fluids and Iv potassium. ? he is up with SBA. ? encourage eating and drinking. ? ?he is voiding. he is on his phone. he is more awake today and less sleepy
[2022-03-10] MEDS: SODIUM CHLORIDE 1 GM TABLET PO ×2 (12:50→17:40)
[2022-03-10 13:47] VITALS: BMI 33.5
[2022-03-10 15:35] VITALS: BP 144/95; PULSE 104; PULSE 95; RESP 20; TEMP 36.6; O2SAT 97
--- NOTE | 2022-03-10 15:59 | PC.NURSE ---
Diabetic education started with patient. Discussed importance of monitoring glucose levels, insulin administration in addition to pt. administering two injections this shift, signs/symptoms of hypo/hyperglycemia, use of alcohol and diabetes. Combination of teach back/verbal/written methods utilized. Pt. receptive, noted more concerned about how/when to administer insulin. Pt. seemed more comfortable with this idea after education provided and he attempted on his own. Written list given to Dr. Medina re: needed supplies for going home re: testing glucose and insulin administration. Primary RN updated with printed information to be given to pt.
[2022-03-10] MEDS: OXYCODONE 5 MG TABLET PO ×2 (18:59→22:39)
[2022-03-10 19:00] VITALS: BP 126/88; PULSE 98; RESP 18; TEMP 36.9; O2SAT 99
--- NOTE | 2022-03-10 19:07 | PC.NURSE ---
End of shift: Patient pleasant and cooperative. Patient is vitally stable, lungs clear, BS WNL, IV running fluids at 100. Patient rated pain at most 7/10, 5mg of oxy was given once. Patient is independent in room. Patient is tolerating and urinating, patient had 3 BMs this today.
[2022-03-10] MEDS: KETOROLAC 30 MG/ML inj IVP (19:51)
[2022-03-10] MEDS: ACETAMINOPHEN 325 MG TABLET PO (19:51)
[2022-03-10 20:51] LABS: Magnesium* 1.8 mg/dL (1.5-2.6)
[2022-03-10] MEDS: POTASSIUM BICARB 25 MEQ EFFERVESCENT TAB PO (21:12)
[2022-03-10] MEDS: hydrOXYzine pamoate 25 MG CAPSULE PO (21:12)
[2022-03-10] MEDS: THIAMINE 100 MG TABLET PO (21:13)
[2022-03-10 23:00] VITALS: BP 128/85; PULSE 90; RESP 16; TEMP 36.8; O2SAT 98
[2022-03-11] MEDS: ENOXAPARIN 30 MG/0.3ML INJ SUBCUT (02:01)
[2022-03-11] MEDS: ACETAMINOPHEN 325 MG TABLET PO (02:02)
[2022-03-11] MEDS: OXYCODONE 5 MG TABLET PO ×2 (02:10→06:23)
[2022-03-11 03:00] VITALS: BP 128/85; PULSE 98; RESP 14; TEMP 36.9; O2SAT 99
--- NOTE | 2022-03-11 05:29 | PC.NURSE ---
SHIFT NOTE 19-07: Pt is pleasant and cooperative, A&O. Up independent in the room. Pt given PRN Oxycodone and Tylenol for abdominal pain and reports good relief. Denies N/V, SOB, and CP. HS blood sugar 306, 0200 blood sugar was 160. Pt hopeful to d/c home today.
[2022-03-11 07:21] LABS: HCO3 VBG 28 mmol/L (21-28); PCO2 VBG 47 mmHG (40-50); PO2 VBG 35.4 mmHG (25-47); pH VBG 7.382 (7.32-7.43)
[2022-03-11 07:25] LABS: Hematocrit 46.1 % (37.0-53.0); Hemoglobin* 16.4 gm/dL (13.5-17.5); Mean Corpuscular HGB Conc 36 gm/dL (32-36); Mean Corpuscular Hemoglobin 32 pg (26-34); Mean Corpuscular Volume 89 fL (80-100); Platelet Count* 143 K/uL (140-440); Red Blood Count 5.16 m/uL (4.30-5.90); White Blood Count* 4.73 K/uL (4.50-11.00)
[2022-03-11 07:44] LABS: Slide Review Reflex No
[2022-03-11 07:45] LABS: Chloride* 99 mmol/L (96-114)
[2022-03-11 07:46] LABS: Sodium* 135 mmol/L (135-149)
[2022-03-11 07:47] LABS: Potassium* 3.3 mmol/L (3.6-5.1)
[2022-03-11 07:49] LABS: Alanine Aminotransferase* 107 U/L (4-50); Alkaline Phosphatase* 116 U/L (40-150); Aspartate Amino Transferase* 85 U/L (12-35); Bilirubin Total* 1.4 mg/dL (0.1-1.5); Blood Urea Nitrogen* 10 mg/dL (5-24); Calcium* 8.8 mg/dL (8.4-10.6); Carbon Dioxide* 25 mmol/L (20-32); Creatinine* 0.5 mg/dL (0.5-1.5); Est. Creatinine Clearance* 177.45; Estimated Glomerular Filt Rate 146.98; Glucose* 181 mg/dL (60-115); Lipase* 90 U/L (23-300); Total Protein* 6.5 g/dL (6.0-8.3)
[2022-03-11 07:50] LABS: Magnesium* 1.9 mg/dL (1.5-2.6)
[2022-03-11 09:10] VITALS: BP 124/79; PULSE 85; PULSE 92; RESP 14; TEMP 37; O2SAT 97
[2022-03-11] MEDS: SODIUM CHLORIDE 1 GM TABLET PO ×2 (09:21→12:06)
[2022-03-11] MEDS: FOLIC ACID 1 MG TABLET PO ×3 (09:21→09:25)
[2022-03-11] MEDS: MULTIVITAMIN/MINERALS 1 TABLET 1 TAB PO ×2 (09:22→09:26)
[2022-03-11] MEDS: OMEPRAZOLE 20 MG CAPSULE DR PO (09:23)
[2022-03-11] MEDS: POTASSIUM PHOS/SODIUM PHOS 250 MG TABLET PO (09:23)
[2022-03-11 10:39] LABS: Hemoglobin A1C* 9.52 % (0-5.6)
[2022-03-11 11:09] VITALS: BP 128/94; PULSE 92; RESP 16; TEMP 36.9; O2SAT 97
--- NOTE | 2022-03-11 11:35 | PM.DS1 ---
DS: Providers Provider Time Seen by Provider: 11:35 Date of admission: 03/09/22 01:39 Primary care physician: Lori Tripp DO Admitting Clinician: Bebeto Ponce MD Consults: 03/08/22 23:51 Consult to Customer Operations Intern [CONS] Routine Comment: Reason for Consult:: Social Service Consult 03/09/22 08:37 Consult to Nutrition [CONS] Routine Comment: Reason for consult:: Nutritional Consult 03/09/22 16:29 Consult to Nutrition [CONS] Routine Comment: Reason for consult:: Miscellaneous Attending Physician on discharge: Bebeto Ponce MD DS: Summary Hospital Course Hospital Course: Patient was immediately started on IV hydration. Blood sugars greater than 550. Lactate was noted to be elevated. Anion gap metabolic acidosis was immediately identified. Patient this time was admitted for further evaluation and treatment of diabetic ketoacidosis. Time Spent with Patient Time attestation: Total time spent providing and/or coordinating discharge services: Exam Const: Vital Signs, click to edit/add: Vital Signs - 24 hr 03/10/22 15:35 03/10/22 19:00 03/10/22 23:00 Temperature 98 F 98.5 F 98.3 F Pulse Rate [Left P ulse Oximeter] 95 Pulse Rate [Right Brachial] 104 H 98 90 Respiratory Rate 20 18 16 Blood Pressure [Le ft Arm] 144/95 H 126/88 128/85 Pulse Oximetry 97 99 98 03/11/22 03:00 Temperature 98.5 F Pulse Rate [Left P ulse Oximeter] Pulse Rate [Right Brachial] 98 Respiratory Rate 14 Blood Pressure [Le ft Arm] 128/85 Pulse Oximetry 99 DS: Data Data Completed and Pending Labs on day of discharge: Labs from last 24 hours 03/11/22 03/11/22 03/11/22 06:55 06:55 06:55 WBC RBC Hgb Hct MCV MCH MCHC Plt Count VBG pH 7.382 VBG pCO2 47 VBG pO2 35.4 VBG HCO3 28 Sodium 135 Potassium 3.3 L Chloride 99 Carbon Dioxide 25 BUN 10 Creatinine 0.5 Estimated Creat Clear 177.45 Glucose 181 H Hemoglobin A1c 9.52 H Calcium 8.8 Magnesium 1.9 Total Bilirubin 1.4 AST 85 H ALT 107 H Alkaline Phosphatase 116 Total Protein 6.5 Albumin 4.0 Lipase 90 03/11/22 03/10/22 06:55 07:02 WBC 4.73 RBC 5.16 Hgb 16.4 Hct 46.1 MCV 89 MCH 32 MCHC 36 Plt Count 143 VBG pH VBG pCO2 VBG pO2 VBG HCO3 Sodium Potassium Chloride Carbon Dioxide BUN Creatinine Estimated Creat Clear Glucose Hemoglobin A1c Calcium Magnesium 1.8 Total Bilirubin AST ALT Alkaline Phosphatase Total Protein Albumin Lipase Discharge Plan Discharge Disposition: Home, Self-Care Date of Admission: 03/09/22 01:39 Attending Provider on Discharge: Bebeto Ponce Primary Care Provider: Lori Tripp Condition: Unchanged Anticipated Discharge Date/Time: 03/11/22 11:24 Discharge Medications: New Humulin 70/30 U-100 KwikPen 100 unit/mL (70-30) insulin pen 20 unit subcut QAM Qty: 3 3RF Rx Instructions: 20 units in the morning and 10 units in the evening Humulin 70/30 U-100 Insulin 100 unit/mL (70-30) suspension 10 unit subcut QPM Qty: 3 3RF Rx Instructions: 10 units in the evening and 20 units in the morning No Action No Known Home Medications 0RF Discharge Orders: Discharge Order (Routine); Ordered 03/11/22 Ordered By: Bebeto Ponce Patient Education: Diabetes Type 1: Management (DC) Activity Restrictions/Additional Instructions: followup at [facility] in [place] immediately after discharge to get your insulin and glucometer Activity Level: No Restrictions Discharge Diet: Diabetic Referrals: Lori Tripp DO [Primary Care Provider] - Forms: [facility] Info Instructions Discharge Comment:
--- NOTE | 2022-03-11 11:36 | PM.DS1 ---
DS: Providers Provider Time Seen by Provider: 11:38 Date Seen: 03/11/22 Date of admission: 03/09/22 01:39 Primary care physician: Lori Tripp DO Admitting Clinician: Bebeto Ponce MD Consults: 03/08/22 23:51 Consult to Environmental Scientist [CONS] Routine Comment: Reason for Consult:: Social Service Consult 03/09/22 08:37 Consult to Nutrition [CONS] Routine Comment: Reason for consult:: Nutritional Consult 03/09/22 16:29 Consult to Nutrition [CONS] Routine Comment: Reason for consult:: Miscellaneous Attending Physician on discharge: Bebeto Ponce MD DS: Diagnosis Discharge Diagnosis (1) Pancreatitis: Status: Acute Problem details: 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 Clinically appears to be type 1 diabetes. 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 Now on insulin. DS: Summary Hospital Course Hospital Course: Patient was immediately started on IV hydration. Blood sugars greater than 550. Insulin drip was initiated. Lactate was noted to be elevated. Anion gap metabolic acidosis was immediately identified. Patient this time was admitted for further evaluation and treatment of diabetic ketoacidosis. Over the 1st day he was weaned off of IV insulin on to subcutaneous insulin. His electrolytes and volume status normalized over the subsequent days of his hospital stay. He was able to resume a normal diet. He was given diabetic teaching. Time Spent with Patient Time attestation: Total time spent providing and/or coordinating discharge services: Time spent: Greater than 30 minutes Specific discharge activities: Patient reports he has no insurance. Because of this I contacted [facility] who will provide him with insulin and glucometer. Exam Narrative: Exam Narrative: He is alert and appears in no distress. Breathing is unlabored. Abdomen: Bowel sounds active. Abdomen is soft without tenderness or mas Const: Vital Signs, click to edit/add: Vital Signs - 24 hr 03/10/22 15:35 03/10/22 19:00 03/10/22 23:00 Temperature 98 F 98.5 F 98.3 F Pulse Rate [Left P ulse Oximeter] 95 Pulse Rate [Right Brachial] 104 H 98 90 Respiratory Rate 20 18 16 Blood Pressure [Le ft Arm] 144/95 H 126/88 128/85 Pulse Oximetry 97 99 98 03/11/22 03:00 Temperature 98.5 F Pulse Rate [Left P ulse Oximeter] Pulse Rate [Right Brachial] 98 Respiratory Rate 14 Blood Pressure [Le ft Arm] 128/85 Pulse Oximetry 99 DS: Data Data Completed and Pending Labs on day of discharge: Labs from last 24 hours 03/11/22 03/11/22 03/11/22 06:55 06:55 06:55 WBC RBC Hgb Hct MCV MCH MCHC Plt Count VBG pH 7.382 VBG pCO2 47 VBG pO2 35.4 VBG HCO3 28 Sodium 135 Potassium 3.3 L Chloride 99 Carbon Dioxide 25 BUN 10 Creatinine 0.5 Estimated Creat Clear 177.45 Glucose 181 H Hemoglobin A1c 9.52 H Calcium 8.8 Magnesium 1.9 Total Bilirubin 1.4 AST 85 H ALT 107 H Alkaline Phosphatase 116 Total Protein 6.5 Albumin 4.0 Lipase 90 03/11/22 03/10/22 06:55 07:02 WBC 4.73 RBC 5.16 Hgb 16.4 Hct 46.1 MCV 89 MCH 32 MCHC 36 Plt Count 143 VBG pH VBG pCO2 VBG pO2 VBG HCO3 Sodium Potassium Chloride Carbon Dioxide BUN Creatinine Estimated Creat Clear Glucose Hemoglobin A1c Calcium Magnesium 1.8 Total Bilirubin AST ALT Alkaline Phosphatase Total Protein Albumin Lipase Discharge Plan Discharge Disposition: Home, Self-Care Date of Admission: 03/09/22 01:39 Attending Provider on Discharge: Bebeto Ponce Primary Care Provider: Lori Tripp Condition: Unchanged Anticipated Discharge Date/Time: 03/11/22 11:24 Discharge Medications: New Humulin 70/30 U-100 KwikPen 100 unit/mL (70-30) insulin pen 20 unit subcut QAM Qty: 3 3RF Rx Instructions: 20 units in the morning and 10 units in the evening Humulin 70/30 U-100 Insulin 100 unit/mL (70-30) suspension 10 unit subcut QPM Qty: 3 3RF Rx Instructions: 10 units in the evening and 20 units in the morning No Action No Known Home Medications 0RF Discharge Orders: Discharge Order (Routine); Ordered 03/11/22 Ordered By: Bebeto Ponce Patient Education: Insulin NPH/Regular (By injection) (NovoLIN 70/30, HumuLIN 70/30,..., Diabetic Ketoacidosis (DC), Meal Planning with Diabetes Exchanges (DC), Diabetes Type 1: Management (DC) Activity Restrictions/Additional Instructions: followup at [facility] in [place] immediately after discharge to get your insulin and glucometer Activity Level: No Restrictions Activity Detail: Patient will need ongoing diabetes evaluation and management as an outpatient. Uncertain whether this will be through [facility] or through his primary care clinic. Discharge Diet: Diabetic Referrals: Lori Tripp DO [Primary Care Provider] - 03/18/22 1:50 pm Forms: [employer] Info Instructions Discharge Comment:
--- NOTE | 2022-03-11 20:19 | PM.IMPN1 ---
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 Limited insight. (3) Diabetic ketoacidosis associated with type 1 diabetes mellitus: Problem details: new diagnosis of diabetes mellitus. Clinically appears to be type 1 diabetes. 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 Now on insulin. Status: Acute Assessment and Plan: Acidosis resolving. We will moved toward discharge discharge Education with mealtime and daily insulin Time Spent With Patient Total time spent: 25 Subjective Date Seen: 03/10/22 Interval history: Daily Progress Note - Hospital Medicine Day #: 3 CC: Fatigue, nausea OVERNIGHT UPDATES FROM STAFF & MED, LAB, IMAGING UPDATES Vitals are reviewed and improved Labs were reviewed and are improving Objective: Much improved. Sitting up. Glasses on. Smiling. No appetite. Feels nauseous with any smell or site of food. Vitals: see above Lungs: Clear. Cardiac: S1S2. Abdomen: Mildly obese Disposition/Potential discharge - Likely to return to previous living situation. Total time is 35 minutes with greater than 50% spent in counseling and coordination of care. Exam Const: Vital Signs, click to edit/add: Vital Signs - 24 hr 03/10/22 23:00 03/11/22 03:00 Temperature 98.3 F 98.5 F Pulse Rate [Right Brachial] 90 98 Respiratory Rate 16 14 Blood Pressure [Le ft Arm] 128/85 128/85 Pulse Oximetry 98 99 Labs Labs: Laboratory Results - last 24 hr 03/10/22 03/11/22 03/11/22 07:02 06:55 06:55 WBC 4.73 RBC 5.16 Hgb 16.4 Hct 46.1 MCV 89 MCH 32 MCHC 36 Plt Count 143 VBG pH VBG pCO2 VBG pO2 VBG HCO3 Sodium 135 Potassium 3.3 L Chloride 99 Carbon Dioxide 25 BUN 10 Creatinine 0.5 Estimated Creat Clear 177.45 Glucose 181 H Hemoglobin A1c Calcium 8.8 Magnesium 1.8 1.9 Total Bilirubin 1.4 AST 85 H ALT 107 H Alkaline Phosphatase 116 Total Protein 6.5 Albumin 4.0 Lipase 90 03/11/22 03/11/22 06:55 06:55 WBC RBC Hgb Hct MCV MCH MCHC Plt Count VBG pH 7.382 VBG pCO2 47 VBG pO2 35.4 VBG HCO3 28 Sodium Potassium Chloride Carbon Dioxide BUN Creatinine Estimated Creat Clear Glucose Hemoglobin A1c 9.52 H Calcium Magnesium Total Bilirubin AST ALT Alkaline Phosphatase Total Protein Albumin Lipase
--- NOTE | 2022-03-11 21:13 | PC.NURSE ---
Pt. up indep. in room, tolerated regular diet, voiding, BM this shift. Pain tolerated w/out need for PRNs. Provided education and discussed w/pt re: new diabetes dx. Pt. able to do injections x2, and reviewed all questions he had. Handouts provided as well as hand-written prescriptions for diabetes supplies which pt. was to obtain from [facility]. Pt. currently w/out insurance. BGs 183 and 306, covered w/insulin. PATSY cancelled this AM by Adam. Pt. seems motivated to feel better, but has some concerns re: affording insulin. Discussed at length importance of using this medication. Pt. picked up by mother and D/C from unit @ 7499. IV removed w/tip intact.
== END 2022-03-11 12:15 | disposition home or self-care (01) | DRG 438 ==
LOC: ED 03-09 00:43 → MEDSURG 03-09 01:42
PROVIDERS: Family Medicine; Admitting Provider Family Medicine; Emergency Provider Internal Medicine; PCP Family Medicine; Visit Provider Family Medicine
DX: K85.21 Alcohol induced acute pancreatitis with uninfected necrosis (principal); E10.10 Type 1 diabetes mellitus with ketoacidosis without coma; K92.0 Hematemesis; F10.29 Alcohol dependence with unspecified alcohol-induced disorder; K86.0 Alcohol-induced chronic pancreatitis; E86.0 Dehydration; F10.20 Alcohol dependence, uncomplicated; F41.9 Anxiety disorder, unspecified; F32.A Depression, unspecified; Z86.711 Personal history of pulmonary embolism; K70.0 Alcoholic fatty liver
CPT/HCPCS: 36415; 36600; 71046; 74176; 80048; 80053; 80061; 80306; 81003; 81015; 82150; 82803; 82947; 83036; 83605; 83690; 83735; 84484; 85025; 85027; 85379; 87635; 93005; 99284; A9153; A9270; C9113; J1650; J1885; J2270; J2405; J3480; J3590; J7030